=== PATIENT | female | born 1985 | race Hispanic/Latino ===

== ENCOUNTER 2018-03-16 14:25 | Emergency (ER) | payer MEDICAID, OTHER ==
[2018-03-16 15:26] LABS: APPEARANCE,URINE Clear (CLEAR); BILIRUBIN,URINE Negative (NEGATIVE); COLOR,URINE Yellow (YELLOW); GLUCOSE, URINE (UA) Negative (NEGATIVE); KETONES,URINE Negative (NEGATIVE); LEUKOCYTE ESTERASE ,URINE Negative (NEGATIVE); NITRATE,URINE Negative (NEGATIVE); OCCULT BLOOD,URINE Negative (NEGATIVE); PH,URINE 6.5 (5.0-8.0); PROTEIN,URINE Negative (NEGATIVE); UROBILINOGEN,URINE 0.2 mg/dL (0.2-1.0)
[2018-03-16 15:29] LABS: HCG,QUAL RESULT NEGATIVE (NEGATIVE)
[2018-03-16 15:30] LABS: BASOPHILS % (AUTO) 0.4 % (0.0-5.0); EOSINOPHILS % (AUTO) 0.7 % (0.0-8.0); HEMATOCRIT 38.7 % (36-48); LYMPHOCYTES % (AUTO) 9.2 % (21.0-51.0); MEAN CORPUSCULAR HEMOGLOBIN 24.9 pg (27.0-33.0); MEAN CORPUSCULAR HGB CONC 31.8 g/dL (32.0-36.0); MEAN CORPUSCULAR VOLUME 78.2 fL (79-99); MONOCYTES % (AUTO) 3.2 % (3.0-13.0); NEUTROPHILS % (AUTO) 86.5 % (40.0-77.0); PLATELET COUNT (AUTO) 222 K/uL (130-400); RED BLOOD CELL COUNT(AUTO) 4.94 MIL/uL (4.00-5.50); RED CELL DISTRIBUTION WIDTH 16.2 % (11.0-15.5); WHITE BLOOD COUNT (AUTO) 14.3 K/uL (4.8-10.8)
[2018-03-16 15:36] LABS: CREATININE 0.6 mg/dL (0.5-1.5); POTASSIUM 3.6 mmol/L (3.5-5.1)
[2018-03-16 15:41] LABS: ALBUMIN 3.6 g/dL (3.5-5.0); BILIRUBIN,DIRECT 0.1 mg/dL (0.0-0.3); BILIRUBIN,TOTAL 0.5 mg/dL (0.2-1.0); TOTAL PROTEIN, SERUM 7.5 g/dL (6.0-8.3)
[2018-03-16] MEDS ORDERED: HYOSCYAMINE SULFATE 0.125 MG TAB.SUBL SL ONE (15:41)
[2018-03-16] MEDS ORDERED: KETOROLAC TROMETHAMINE 30MG/ML ONE (16:01)
[2018-03-16] MEDS ORDERED: SODIUM CHLORIDE 0.9% 1000ML 1,000 ML IV ONE (16:01)
== END 2018-03-16 17:26 | disposition home or self-care (01) ==
LOC: EDH 14:25
DX: A09 Infectious gastroenteritis and colitis, unspecified (principal); K80.80 Other cholelithiasis without obstruction; Z98.890 Other specified postprocedural states; Z88.0 Allergy status to penicillin; Z72.0 Tobacco use
CPT/HCPCS: 36415; 74177; 80048; 80076; 81003; 81025; 85025; 96361; 96374; 99284; J1885; J7030

== ENCOUNTER 2024-10-13 01:51 | Observation (INO) | payer MEDICAID ==
[~2024-10-13] VITALS: Ht 165.1 cm; Wt 88.4 kg
[~2024-10-13 01:51] MED LIST: PANT40TA PO
--- NOTE | 2024-10-13 02:09 | ERN ---
General Chief Complaint: Abdominal Pain Stated Complaint: DIFFUSE ABD PAIN Time Seen by MD: 01:59 Source: patient History of Present Illness Initial Comments 39-year-old female status post exploratory laparotomy for perforated duodenal ulcer September 19. The operative report suggest she has had a gastric bypass surgery in the past. Patient comes in today with a excruciating abdominal pain that comes in waves about 3-4 minutes apart. They are associated with nausea and vomiting. No fevers no urinary tract symptoms. Allergies: Coded Allergies: Penicillins (Unverified Allergy, Severe, 08/12/24) No Known Drug Allergies (Verified Allergy, Unknown, 08/12/24) Home Meds Active Scripts Pantoprazole Sodium (Protonix) 40 Mg Tablet.dr, 1 TAB PO BID for 30 Days, #30 TAB 0 Refills Prov:LORI GALLAGHER APRN 08/23/24 Past Medical History Past Medical History: No Pertinent History Past Surgical History: Surgical History Other: GASTRIC BYPASS Perforated duodenal ulcer Constitutional: (-) chills, (-) diaphoresis, (-) fever, (-) malaise, (-) weakness, (-) other documentation EENTM: (-) eye pain, (-) blurred vision, (-) tearing, (-) double vision, (-) ear pain, (-) ear discharge, (-) nose pain, (-) nose congestion, (-) throat pain, (-) Throat swelling, (-) mouth pain, (-) tooth pain, (-) mouth swelling, (-) other documentation Respiratory: (-) cough, (-) orthopnea, (-) short of breath, (-) stridor, (-) wheezing, (-) other documentation Cardiovascular: (-) chest pain, (-) edema, (-) palpitations, (-) syncope, (-) dyspnea on exertion, (-) other documentation Gastrointestinal/Abdominal: (+) nausea, (+) vomiting Genitourinary: (-) vaginal discharge, (-) vaginal bleeding, (-) dysuria, (-) frequency, (-) hematuria, (-) pain, (-) other documentation Musculoskeletal: (+) back pain; (-) Neck pain, (-) Flank Pain, (-) joint pain, (-) joint swelling, (-) muscle pain, (-) muscle stiffness, (-) gout, (-) other documentation Skin: (-) laceration, (-) contusion, (-) abrasion, (-) abscess, (-) rash, (-) change in color, (-) change in hair, (-) change in nails, (-) diaphoresis, (-) dryness, (-) other documentation Physical Exam General Appearance: (+) severe distress Orientation: (+) alert, (+) oriented x 3 Head/Face Trauma: No Eye: bilateral eye normal inspection, bilateral eye PERRL, bilateral eye EOMI Ear, Nose, Throat: (+) hearing grossly normal, (+) normal ENT inspection, (+) moist mucous membraine Neck: (+) normal inspection, (+) supple, (+) full range of motion Respiratory: (+) chest non-tender, (+) lungs clear, (+) well ventilated Heart: (+) regular, (+) tachycardia Vascular: (+) no edema, (+) normal peripheral pulse Gastrointestinal: (+) soft, (+) bowel sound present, (+) tender Results Laboratory and Microbiology Lab and Micro Result Laboratory Tests Test 10/13/24 02:07 10/13/24 04:26 White Blood Count 7.6 K/uL (4.8-10.8) Red Blood Count 4.04 MIL/uL (4.00-5.50) Hemoglobin 11.8 g/dL (12.0-16.0) L Hematocrit 35.5 % (36-48) L Mean Corpuscular Volume 87.9 fL (79-99) Mean Corpuscular Hemoglobin 29.2 pg (27.0-33.0) Mean Corpuscular Hemoglobin Concent 33.2 g/dL (32.0-36.0) Red Cell Distribution Width 14.9 % (11.0-15.5) Platelet Count 213 K/uL (130-400) Mean Platelet Volume 11.3 fL (7.5-10.5) H Immature Granulocyte % (Auto) 0.3 % (0-1) Neutrophils (%) (Auto) 81.6 % (40.0-77.0) H Lymphocytes (%) (Auto) 11.2 % (21.0-51.0) L Monocytes (%) (Auto) 5.3 % (3.0-13.0) Eosinophils (%) (Auto) 1.2 % (0.0-8.0) Basophils (%) (Auto) 0.4 % (0.0-5.0) Neutrophils # (Auto) 6.2 K/uL (1.8-7.7) Lymphocytes # (Auto) 0.9 K/uL (1.0-4.8) L Monocytes # (Auto) 0.4 K/uL (0.1-1.0) Eosinophils # (Auto) 0.09 K/uL (0.00-0.70) Basophils # (Auto) 0.03 K/uL (0.00-0.20) Absolute Immature Granulocyte (auto 0.02 K/uL (0-1) Nucleated Red Blood Cells 0.0 % (0.0-0.19) Sodium Level 140 mmol/L (136-145) Potassium Level 4.0 mmol/L (3.5-5.1) Chloride Level 105 mmol/L (101-111) Carbon Dioxide Level 23 mmol/L (21-32) Blood Urea Nitrogen 15 mg/dL (7-18) Creatinine 0.5 mg/dL (0.5-1.0) Glomerular Filtration Rate Calc 124 mL/min (>90) Random Glucose 106 mg/dL (70-105) H Total Calcium 8.3 mg/dL (8.5-10.1) L Total Bilirubin 0.4 mg/dL (0.2-1.0) Aspartate Amino Transf (AST/SGOT) 20 U/L (10-37) Alanine Aminotransferase (ALT/SGPT) 20 U/L (12-78) Alkaline Phosphatase 91 U/L (50-136) Total Protein 6.9 g/dL (6.0-8.3) Albumin 3.4 g/dL (3.5-5.0) L Serum Test, Qualitative NEGATIVE (NEGATIVE) Urine Color YELLOW (YELLOW) Urine Appearance CLEAR (CLEAR) Urine pH 6.0 (5.0-8.0) Urine Specific Joseph 1.031 (1.001-1.031) Urine Protein 10 mg/dL (NEGATIVE) H Urine Glucose (UA) NEGATIVE mg/dL (NEGATIVE) Urine Ketones 100 mg/dL (NEGATIVE) H Urine Occult Blood NEGATIVE (NEGATIVE) Urine Nitrate NEGATIVE (NEGATIVE) Urine Bilirubin NEGATIVE mg/dL (NEGATIVE) Urine Urobilinogen 2.0 mg/dL (0.2-1.0) H Urine Leukocyte Esterase NEGATIVE Jose/uL Urine RBC 2-5 /HPF (0-1) H Urine WBC 2-5 /HPF (0-1) H Urine Squamous Epithelial Cells RARE /HPF (0-2) Urine Bacteria FEW /HPF (None Seen) MDM MDM: Differential diagnosis: Another perforation, small-bowel obstruction, renal calculi, pyelonephritis, Rationale: Tests considered and ordered secondary to shared decision making include: Previous outside records reviewed: Old ER visits. Risk of complication and/or morbidity or mortality of patient management: None Medications-Per medication reconciliation Need for hospitalization: Patient does meet criteria for hospitalization. Need for emergency major/minor surgery: No There are no social concerns with this patient. Prescription drug management Prescriptions will include symptomatic care Patient's prior external medical records from other ER visits were reviewed by me as indicated. Prior testing and results from previous visits were reviewed. Prior tests were taken into account with medical decision making and resource utilization, independent historian/historians were used to obtain complete medical history. I independently interpreted the test that were performed, results were reviewed by me and considered findings on radiology if ordered. CT scan shows an early small-bowel obstruction. I did try and control the patient's subxiphoid pain with a GI cocktail and it immediately created nausea and emesis. Patient's UA showed large number of ketones no signs of infection. I am calling the hospitalist service to admit patient with a small bowel obstruction. They have agreed to accept her ED Course Orders Procedure Category Date Status Time Comprehensive LAB 10/13/24 Complete Metabolic Panel 02:10 Cbc With Differential LAB 10/13/24 Complete 02:10 Urinalysis Profile LAB 10/13/24 Complete 02:10 Ct Abdomen/Pelvis CT 10/13/24 Resulted W/Wo Contras 02:10 Hydromorphone 1 Mg PHA 10/13/24 Complete Inj (Dilaudid 1mg Inj 02:30 Testing, LAB 10/13/24 Complete Serum Hcg 02:30 Iohexol (Omnipaque) PHA 10/13/24 Complete 02:44 Lactated Ringers PHA 10/13/24 Complete 1000ml (Lactated 02:50 Hydromorphone 1 Mg PHA 10/13/24 Complete Inj (Dilaudid 1mg Inj 03:00 Hydromorphone 2mg PHA 10/13/24 Complete Vial (Dilaudid 2mg Inj 03:00 Lidocaine Hcl 2% PHA 10/13/24 Complete Viscous (Lidocaine Hcl 04:30 Mag/Alum/Simeth 30ml PHA 10/13/24 Complete (Maalox Plus 30ml) 04:30 Dicyclomine Hcl PHA 10/13/24 Complete (Bentyl 10mg/5ml 04:30 Ondansetron 4mg Inj PHA 10/13/24 Complete (Zofran 4mg Inj) 05:30 Lactated Ringers PHA 10/13/24 Complete 1000ml (Lactated 05:29 Current Medications Medications (Trade) Dose Ordered Sig/Katharina Route PRN Reason Start Time Stop Time Status Last Admin Dose Admin Al Hydroxide/Mg Hydroxide (MAALox PLUS 30ML) 30 ml ONCE ONCE PO 10/13/24 04:30 10/13/24 04:31 DC 10/13/24 04:44 Dicyclomine HCl (Bentyl 10mg/5ml Syrup) 10 mg ONCE ONCE PO 10/13/24 04:30 10/13/24 04:31 DC 10/13/24 04:44 Hydromorphone HCl (DiLAUDid 1MG INJ) 1 mg ONCE ONCE IVP 10/13/24 02:30 10/13/24 02:31 DC 10/13/24 02:25 Hydromorphone HCl (DiLAUDid 1MG INJ) 1 mg ONCE ONCE IVP 10/13/24 03:00 10/13/24 02:58 DC Hydromorphone HCl (DiLAUDid 2MG INJ) 2 mg ONCE ONCE IVP 10/13/24 03:00 10/13/24 03:01 DC 10/13/24 03:02 Iohexol (Omnipaque) 75 ml STK-MED ONCE IV 10/13/24 02:44 10/13/24 02:45 DC Lactated Ringer's (Lactated Ringers 1000ml) 1,000 ml BOLUS STAT IV 10/13/24 02:50 10/13/24 02:54 DC 10/13/24 02:57 Lactated Ringer's (Lactated Ringers 1000ml) 1,000 ml BOLUS STAT IV 10/13/24 05:29 10/13/24 05:32 DC Lidocaine HCl (Lidocaine HCl 2% Viscous) 10 ml ONCE ONCE PO 10/13/24 04:30 10/13/24 04:31 DC 10/13/24 04:44 Ondansetron HCl (zoFRAN 4MG INJ) 4 mg ONCE ONCE IVP 10/13/24 05:30 10/13/24 05:31 DC 10/13/24 05:21 Vital Signs Date Time Temp Pulse Resp B/P (MAP) Pulse Ox O2 Delivery O2 Flow Rate FiO2 10/13/24 05:32 98.2 60 16 104/57 98 Room Air* 0 10/13/24 04:22 98.2 61 18 121/70 98 Room Air* 0 10/13/24 02:08 98.2 69 18 126/74 98 Room Air* 0 10/13/24 01:52 99.1 72 18 140/85 100 Room Air 0 DX & DISP Disposition: Inpatient Departure Impression: Primary Impression: Small bowel obstruction Additional Impression: Dehydration Condition: Stable Referrals: SELF,REFERRAL (PCP) TEODORO GARCIA MD Oct 13, 2024 02:09
[2024-10-13 02:22] LABS: IMMATURE GRANULOCYTE ABSOLUTE 0.02 K/uL (0-1); NUCLEATED RED BLOOD CELLS 0.0 % (0.0-0.19); PLATELET COUNT (AUTO) 213 K/uL (130-400); RED BLOOD CELL COUNT(AUTO) 4.04 MIL/uL (4.00-5.50); RED CELL DISTRIBUTION WIDTH 14.9 % (11.0-15.5); WHITE BLOOD COUNT (AUTO) 7.6 K/uL (4.8-10.8)
[2024-10-13 02:33] LABS: CREATININE 0.5 mg/dL (0.5-1.0); GLOMERULAR FILTR. RATE CALC 124.0 mL/min (>90); GLUCOSE,RANDOM 106.0 mg/dL (70-105); SODIUM SERUM 140.0 mmol/L (136-145); UREA NITROGEN, BLOOD 15.0 mg/dL (7-18)
[2024-10-13 02:38] LABS: ASPARTATE AMINOTRANSFERASE 20.0 U/L (10-37); TOTAL PROTEIN, SERUM 6.9 g/dL (6.0-8.3)
[2024-10-13] MEDS ORDERED: IOHEXOL-350 75 ML VIAL IV ONE (02:44)
[2024-10-13] MEDS: LACTATED RINGERS 1000ML IV STA ×2 (02:57→05:36)
[2024-10-13] MEDS: DICYCLOMINE HCL 10 MG/5 ML ML PO ONE (04:44)
[2024-10-13] MEDS: LIDOCAINE HCL 2% VISCOUS 15 ML UDCUP PO ONE (04:44)
[2024-10-13] MEDS: MAG/ALUM/SIMETH 30 ML UDCUP PO ONE (04:44)
[2024-10-13 04:48] LABS: APPEARANCE,URINE CLEAR (CLEAR); GLUCOSE, URINE (UA) NEGATIVE (NEGATIVE); LEUKOCYTE ESTERASE ,URINE NEGATIVE Leu/uL (NEGATIVE); NITRATE,URINE NEGATIVE (NEGATIVE); OCCULT BLOOD,URINE NEGATIVE (NEGATIVE)
[2024-10-13 04:53] LABS: ADD UA MICROSCOPIC YES
[2024-10-13 04:55] LABS: SQUAMOUS EPITHELIAL CELL,UR RARE /HPF (0-2)
--- NOTE | 2024-10-13 05:13 | HMCIMG ---
EXAM: CT Abdomen and Pelvis without V contrast CLINICAL HISTORY: Perforation, obstruction, or renal calculus. TECHNIQUE: Thin collimated axial CT images of the abdomen and pelvis were obtained, with sagittal and coronal reformatted images also submitted. A CT scan is done according to ALARA (As Low As Reasonably Achievable). CONTRAST: None COMPARISON: Prior CT urogram dated August 25 FINDINGS: Unremarkable visualized lung parenchyma. Post cholecystectomy status. Moderate splenomegaly. No discrete focal lesion. No focal abnormality within the liver, pancreas, adrenals, or kidneys. Mild fluid-filled dilated mid-ileal loops measuring up to 2.7 cm with an abrupt transition point in the right iliac fossa. Distal ileal loops are not dilated. Possibility of subacute small bowel obstruction around the junction of the mid and distal ileal loops, probably secondary to adhesions or bands. Post-gastric reduction surgery status with gastrojejunostomy. Surgical anastomosis in the distal jejunal loops. Distal jejunal loops or proximal loops are not dilated. Mild fat stranding in the omentum. Mild free fluid in the pelvis. Moderate amount of fecal residue in the cecum and ascending and transverse colon. The appendix is not discretely visualized. No features of acute appendicitis. There is no abnormality within the urinary bladder. Unremarkable reproductive organs. Abdominal and pelvic vessels are patent. No lymphadenopathy. There is no acute osseous abnormality. Degenerative changes in the sacroiliac, superolateral hip joint, and multilevel degenerative facet arthropathy. IMPRESSIONS: Subacute to small bowel obstruction. Recommend CT abdomen and pelvis with IV and oral contrast for further evaluation. Moderate splenomegaly. Small ascites. Post cholecystectomy status. Compared to the prior study, there is an interval resolution of the mild bilateral pleural effusion. A resolution of the postoperative intraperitoneal air. Previously identified changes of ileus have regressed; however, there is interval dilatation of the mid-ileal loops. /[place]
[2024-10-13] MEDS ORDERED: LACTULOSE 20 GM/30 ML UDCUP PO PRN (06:30)
[2024-10-13 06:45] VITALS: BP 129/93; PULSE 58; RESP 18; TEMP 97.5
[2024-10-13 08:00] VITALS: BP 123/71; PULSE 60; RESP 19; TEMP 97.4; O2SAT 97
--- NOTE | 2024-10-13 09:55 | HP ---
[facility] PHYS[facility] Date of Service: Oct 13, 2024 Time of Service: 09:39 HISTORY OF PRESENT ILLNESS: [ ] Admission date 10/13/2024 Chief complaint abdominal pain PCP DR Donn Scott This is a 39-year-old female presents in ED with abdominal pain. Onset three days reports it gradually became worsening with nauseated. Location diffuse, stated 10/10 on pain scale, pain does not radiate. Aggravating factors p.o. intake alleviating factors none associated symptoms nauseated. Patient rep orts last BM was last night but it was very small amount. She report no fluctuance but she belching Patient denies taking narcotics for pain. Patient has a significant medical history of perforated ulcer underwent ex lap August 12, 2024. Imaging was obtained Subacute to small bowel obstruction. Moderate splenomegaly. Small ascites. General surgeon was consulted we will wait for his recommendation she is currently NPO for now. Patient is seen in room 407 patient is fully awake alert oriented x3. pain is diffuse dull pain after she received pain medication in ED. she denied chest pain or shortness for breath REVIEW OF SYSTEMS 12 point ROS obtained all relevant positive documented otherwise ROS negative PAST MEDICAL HISTORY: [ ] History of perforated ulcer PAST SURGICAL HISTORY: [ ] Ex lap perforated ulcer PAST SOCIAL HISTORY: [ ] Denies smoking tobacco products and alcohol use lives with spouse FAMILY HISTORY: [ ] Noncontributory Coded Allergies: Penicillins (Unverified Allergy, Severe, 08/12/24) No Known Drug Allergies (Verified Allergy, Unknown, 08/12/24) PHYSICAL EXAM GENERAL APPEARANCE: The patient is awake, alert, and oriented, in no acute cardiopulmonary distress. NEUROLOGICAL: Cranial nerves II-XII grossly intact. Motor is 5/5 in bilateral upper and lower extremities proximal to distal. No sensory deficits. HEENT: Face is symmetric. Pupils are equal and reactive. Extraocular movements are intact. NECK: Supple. No JVD. No thyromegaly. No submental, submandibular, pre- /postauricular, occipital or supraclavicular lymphadenopathy. CHEST: Normal chest expansion. No Telemetry. LUNGS: Absence of any rales, rhonchi or any wheezing. CARDIOVASCULAR: Regular. S1 and S2 normal. No appreciable rubs, murmurs or gallops. ABDOMEN: Soft, nontender, ++distended. There is no rebound, voluntary guarding, or rigidity. : Deferred. No [place]. EXTREMITIES: Non-edematous and not cyanotic. No clubbing. Good capillary refill. SKIN: No skin breakdown. Vital Sign (Last 24 Hours) 10/13/24 10/13/24 06:28 08:00 Temp 97.3 Pulse 60 Resp 19 B/P (MAP) 123/71 Pulse Ox 98 O2 Delivery Room Air O2 Flow Rate 0 FiO2 21 LABS: Laboratory: Test 10/13/24 04:26 10/13/24 02:07 Range/Units Urine Color YELLOW YELLOW Urine Appearance CLEAR CLEAR Urine pH 6.0 5.0-8.0 Urine Specific [place] 1.031 1.001-1.031 Urine Protein 10 H NEGATIVE mg/dL Urine Glucose (UA) NEGATIVE NEGATIVE mg/dL Urine Ketones 100 H NEGATIVE mg/dL Urine Occult Blood NEGATIVE NEGATIVE Urine Nitrate NEGATIVE NEGATIVE Urine Bilirubin NEGATIVE NEGATIVE mg/dL Urine Urobilinogen 2.0 H 0.2-1.0 mg/dL Urine Leukocyte Esterase NEGATIVE NEGATIVE Jose/uL Urine RBC 2-5 H 0-1 /HPF Urine WBC 2-5 H 0-1 /HPF Urine Squamous Epithelial Cells RARE 0-2 /HPF Urine Bacteria FEW None Seen /HPF White Blood Count 7.6 4.8-10.8 K/uL Red Blood Count 4.04 4.00-5.50 MIL/uL Hemoglobin 11.8 L 12.0-16.0 g/dL Hematocrit 35.5 L 36-48 % Mean Corpuscular Volume 87.9 79-99 fL Mean Corpuscular Hemoglobin 29.2 27.0-33.0 pg Mean Corpuscular Hemoglobin Concent 33.2 32.0-36.0 g/dL Red Cell Distribution Width 14.9 11.0-15.5 % Platelet Count 213 130-400 K/uL Mean Platelet Volume 11.3 H 7.5-10.5 fL Immature Granulocyte % (Auto) 0.3 0-1 % Neutrophils (%) (Auto) 81.6 H 40.0-77.0 % Lymphocytes (%) (Auto) 11.2 L 21.0-51.0 % Monocytes (%) (Auto) 5.3 3.0-13.0 % Eosinophils (%) (Auto) 1.2 0.0-8.0 % Basophils (%) (Auto) 0.4 0.0-5.0 % Neutrophils # (Auto) 6.2 1.8-7.7 K/uL Lymphocytes # (Auto) 0.9 L 1.0-4.8 K/uL Monocytes # (Auto) 0.4 0.1-1.0 K/uL Eosinophils # (Auto) 0.09 0.00-0.70 K/uL Basophils # (Auto) 0.03 0.00-0.20 K/uL Absolute Immature Granulocyte (auto 0.02 0-1 K/uL Nucleated Red Blood Cells 0.0 0.0-0.19 % Sodium Level 140 136-145 mmol/L Potassium Level 4.0 3.5-5.1 mmol/L Chloride Level 105 101-111 mmol/L Carbon Dioxide Level 23 21-32 mmol/L Blood Urea Nitrogen 15 7-18 mg/dL Creatinine 0.5 0.5-1.0 mg/dL Glomerular Filtration Rate Calc 124 >90 mL/min Random Glucose 106 H 70-105 mg/dL Total Calcium 8.3 L 8.5-10.1 mg/dL Total Bilirubin 0.4 0.2-1.0 mg/dL Aspartate Amino Transf (AST/SGOT) 20 10-37 U/L Alanine Aminotransferase (ALT/SGPT) 20 12-78 U/L Alkaline Phosphatase 91 50-136 U/L Total Protein 6.9 6.0-8.3 g/dL Albumin 3.4 L 3.5-5.0 g/dL Serum Test, Qualitative NEGATIVE NEGATIVE Current Medications Medications (Trade) Dose Ordered Sig/Katharina Route PRN Reason Start Time Stop Time Status Last Admin Dose Admin Acetaminophen (TYLenol 325MG TAB) 650 mg Q6H PRN PO FEVER/MILD PAIN LEVEL 1-3 10/13/24 06:30 11/12/24 06:29 Acetaminophen (TYLenol 650MG SUPPOSITORY) 650 mg Q6H PRN RC FEVER / MILD PAIN 1-3 IF NPO 10/13/24 06:30 11/12/24 06:29 Docusate Sodium (COLace 100MG CAP) 100 mg BID PRN PO CONSTIPATION 10/13/24 06:30 11/12/24 06:29 Famotidine (Pepcid 20mg Vial) 20 mg BID IV 10/13/24 09:00 11/12/24 08:59 Insulin Human Regular (humuLIN R 100 UNIT/ML 3ML) INSULIN SLIDING SCAL... ACHS SQ 10/13/24 07:30 11/12/24 07:29 Labetalol HCl (TRANdate 20MG SYG) 10 mg Q2H PRN IV SBP GREATER THAN 160 10/13/24 06:30 11/12/24 06:29 Lactated Ringer's 1,000 ml @ 75 mls/hr [id number] IV 10/13/24 06:30 11/12/24 06:29 Lactated Ringer's (Lactated Ringers 1000ml) 1,000 ml BOLUS STAT IV 10/13/24 02:50 10/13/24 02:54 DC 10/13/24 02:57 1,000 ML Lactated Ringer's (Lactated Ringers 1000ml) 1,000 ml BOLUS STAT IV 10/13/24 05:29 10/13/24 05:32 DC 10/13/24 05:36 1,000 ML Lactulose (Constulose 20gm/ 30ml Udcup) 20 gm Q6H PRN PO CONSTIPATION 10/13/24 06:30 11/12/24 06:29 Morphine Sulfate (morPHINE 2MG SYG) 2 mg Q4H PRN IVP SEVERE PAIN (7-10) 10/13/24 06:30 10/20/24 06:29 Ondansetron HCl (zoFRAN 4MG INJ) 4 mg Q6H PRN IVP NAUSEA/VOMITING 10/13/24 06:30 11/12/24 06:29 Temazepam (restORIL 15 MG CAP) 15 mg HS PRN PO INSOMNIA/SLEEP 10/13/24 06:30 11/12/24 06:29 DIAGNOSTICS / RADIOLOGY: [ ] ASSESSMENT: SBO POA Intractable abdominal pain POA History of ex lap perforation ulcer POA Allergies PCN PLAN: Admit: Medical floor condition: Guarded Status: Full code Diet: NPO Bowel Rest IVF: LRat 75 mL/hour Consultants general surgeon Antibiotics: Imaging. We will wait for surgeon if he needs further evaluation Labs cbc, cmp, mag+ Replace electrolytes as needed as per protocol to keep potassium above 4.0 magnesium 2.0. Home medications pending to be reviewed by RN nurse. PRN: MEDICATIONS morphine2 mg p.o. daily Tylenol 650 mg po every 4 hrs for fever zofran 4 mg IV every 6 hrs for n/v Labetalol 10 mg IV every 4 hrs systolic pressure > 160 bowel regiment: lactulose 20 gm PO BID and colace PRN constipation Pain management: Supportive measures: DVT ppx, GI ppx all questions answered time spent: > 35 min Supervising MD: Dr. Rose c/d This document was generated in part using voice recognition software, occasional wrong word or sound alike substitutions may have occurred due to the inherent limitations of voice recognition software. Read the chart carefully and recognize using context, where the substitutions have occurred. Although every effort was made to edit the content, warehouse helper and typing errors may occur ADVANCED CARE PLANNING 1. Which of the following were discussed? Hospice Care - Yes / No Therapeutic options - Yes / No Advance Directives - Yes / No Other discussions - 2. Discussed with who? 3. Voluntary nature of this service was explained to the patient? Yes / No 4. Amount of time spent - 5. Reviewed by Physician? (if this service was performed by NPP) Yes / No ATTESTATION BY PHYSICIAN I have seen and examined the patient. I reviewed the documentation, medical decision making, and treatment plan as noted by the mid-level provider above. I agree with the findings and plan of care. BRENNAN ROSE MD, ELIZABETH NP Oct 13, 2024 09:55
[2024-10-13] MEDS ORDERED: PoTASSium chloRIDE 20MEQ ER 20 MEQ ERTAB PO PRN (10:00)
[2024-10-13] MEDS ORDERED: MAGNESIUM 2GM PREMIX 50ML 50 ML IV PRN (10:00)
[2024-10-13] MEDS ORDERED: PoTASSium chl 10% ELIXIR 20MEQ 20 MEQ/15 ML UDCUP PO PRN (10:00)
[2024-10-13] MEDS: LACTATED RINGERS 1000ML 1,000 ML IV SCH (10:24)
[2024-10-13] MEDS: FAMOTIDINE 20MG VIAL IV SCH (10:24)
[2024-10-13 12:15] VITALS: BP 125/77; PULSE 62; RESP 19; TEMP 97.9
[2024-10-13] MEDS: MAGNESIUM CITRATE 296 ML SOLUTION PO ONE (13:28)
--- NOTE | 2024-10-13 13:46 | CONS ---
GENERAL SURGERY CONSULTATION NOTE DATE OF CONSULTATION: Oct 13, 2024 TIME OF CONSULTATION: 13:43 CONSULTING SERVICE: Jeremi Burns MD REQUESTING PHYSICAIN: [ ] REASON FOR CONSULTATION: [ ] Abdominal pain SBO HISTORY OF PRESENT ILLNESS: [ ] 39-year-old lady who presented with abdominal pain She said pain had been going on for about a week now he had gotten worse yesterday No nausea or vomiting No diarrhea or constipation PAST MEDICAL HISTORY: [ ] Perforated duodenal ulcer PAST SURGICAL HISTORY: [ ] Exploratory laparotomy FAMILY HISTORY: [ ] No family history of hypertension or diabetes SOCIAL HISTORY: [ ] No smoking No alcohol Current Medications Medications (Trade) Dose Ordered Sig/Katharina Route Start Time Stop Time Status Last Admin Dose Admin Famotidine (Pepcid 20mg Vial) 20 mg BID IV 10/13/24 09:00 11/12/24 08:59 10/13/24 10:24 20 MG Insulin Human Regular (humuLIN R 100 UNIT/ML 3ML) INSULIN SLIDING SCAL... ACHS SQ 10/13/24 07:30 11/12/24 07:29 Lactated Ringer's 1,000 ml @ 75 mls/hr [id number] IV 10/13/24 06:30 11/12/24 06:29 10/13/24 10:24 75 MLS/HR Lactated Ringer's (Lactated Ringers 1000ml) 1,000 ml BOLUS STAT IV 10/13/24 02:50 10/13/24 02:54 DC 10/13/24 02:57 1,000 ML Lactated Ringer's (Lactated Ringers 1000ml) 1,000 ml BOLUS STAT IV 10/13/24 05:29 10/13/24 05:32 DC 10/13/24 05:36 1,000 ML Levofloxacin/ Dextrose 100 ml @ 100 mls/hr Q24H IV 10/13/24 10:00 10/23/24 09:59 10/13/24 10:24 100 MLS/HR Allergies: Coded Allergies: Penicillins (Unverified Allergy, Severe, 08/12/24) No Known Drug Allergies (Verified Allergy, Unknown, 08/12/24) REVIEW OF SYSTEMS: DIRECTOR OF CLINICAL TRIALS: [Denies headaches or blurring of vision.] RESP: [No cough, chest pain or SOB.] CVS: [No palpitaions.] GI: [abdominal pain no nausea and vomiting, no diarrhea or constipation.] LYDIA: [No dysuria or hematuria.] Musculoskeletal: [No swelling or joint pain.] BACK: [No pain or swelling.] All other systems are reviewed and essentially negative pertinent positives in HPI. PHYSICAL EXAMINATION: GENERAL: [Patient is lying comfortably in bed, not in any obvious distress.] HEAD: [Normal with no signs of head trauma.] EYES: [Not pale not jaundiced afebrile to touch.] ENT: [ Normal.] NECK: [Supple,no tenderness,no lymphadenopathy,no masses,no thyromegaly ,no bruits, no JVD.] LUNGS: [Clear breath sounds bilaterally. No wheezes, rales, or rhonchi.] HEART: [Regular rate and rhythm. Normal S1 and S2, without murmurs, rub or gallop.] VASC: [No edema. Peripheral pulses normal and equal in all extremities.] ABD: [Bowel sounds present,soft, nontender, no masses, no organomegaly.] : [Normal, no suprapubic tenderness.] LYMPH: [No lymphadenopathy noted.] EXT: [ Warm soft, non tender.] SKIN: [ No rashes or lesions.] NEURO: [ Awake Alert and oriented x3.] Vital Signs (last 8hr) Date Time Temp Pulse Resp B/P (MAP) Pulse Ox O2 Delivery O2 Flow Rate FiO2 10/13/24 12:15 97.9 62 19 125/77 96 Room Air 10/13/24 08:00 97.3 60 19 123/71 98 Room Air 10/13/24 08:00 97 Room Air* 0 21 10/13/24 06:45 97.5 58 18 129/93 98 Room Air 10/13/24 06:28 98.4 66 18 125/68 98 Room Air* 0 21 LABORATORY: [ ] Hematology Labs: Test 10/13/24 02:07 Range/Units White Blood Count 7.6 4.8-10.8 K/uL Red Blood Count 4.04 4.00-5.50 MIL/uL Hemoglobin 11.8 L 12.0-16.0 g/dL Hematocrit 35.5 L 36-48 % Mean Corpuscular Volume 87.9 79-99 fL Mean Corpuscular Hemoglobin 29.2 27.0-33.0 pg Mean Corpuscular Hemoglobin Concent 33.2 32.0-36.0 g/dL Red Cell Distribution Width 14.9 11.0-15.5 % Platelet Count 213 130-400 K/uL Mean Platelet Volume 11.3 H 7.5-10.5 fL Immature Granulocyte % (Auto) 0.3 0-1 % Neutrophils (%) (Auto) 81.6 H 40.0-77.0 % Lymphocytes (%) (Auto) 11.2 L 21.0-51.0 % Monocytes (%) (Auto) 5.3 3.0-13.0 % Eosinophils (%) (Auto) 1.2 0.0-8.0 % Basophils (%) (Auto) 0.4 0.0-5.0 % Neutrophils # (Auto) 6.2 1.8-7.7 K/uL Lymphocytes # (Auto) 0.9 L 1.0-4.8 K/uL Monocytes # (Auto) 0.4 0.1-1.0 K/uL Eosinophils # (Auto) 0.09 0.00-0.70 K/uL Basophils # (Auto) 0.03 0.00-0.20 K/uL Absolute Immature Granulocyte (auto 0.02 0-1 K/uL Nucleated Red Blood Cells 0.0 0.0-0.19 % Chemistry Labs: Test 10/13/24 10:40 10/13/24 02:07 Range/Units Whole Blood Glucose 104 70-110 MG/DL Sodium Level 140 136-145 mmol/L Potassium Level 4.0 3.5-5.1 mmol/L Chloride Level 105 101-111 mmol/L Carbon Dioxide Level 23 21-32 mmol/L Blood Urea Nitrogen 15 7-18 mg/dL Creatinine 0.5 0.5-1.0 mg/dL Glomerular Filtration Rate Calc 124 >90 mL/min Random Glucose 106 H 70-105 mg/dL Total Calcium 8.3 L 8.5-10.1 mg/dL Total Bilirubin 0.4 0.2-1.0 mg/dL Aspartate Amino Transf (AST/SGOT) 20 10-37 U/L Alanine Aminotransferase (ALT/SGPT) 20 12-78 U/L Alkaline Phosphatase 91 50-136 U/L Total Protein 6.9 6.0-8.3 g/dL Albumin 3.4 L 3.5-5.0 g/dL Serum Test, Qualitative NEGATIVE NEGATIVE DIAGNOSTICS / RADIOLOGY: [Copy/Paste Echos/Imaging Report here] ASSESSMENT: [] Abdominal pain Partial SBO Constipation PLAN: [] Rehydrate IVF/IV ANTIOBIOTICS Mag citrate Clears in a.m. if she has BMs JEREMI BURNS MD Oct 13, 2024 13:45
[2024-10-13 16:07] VITALS: BP 115/70; PULSE 58; RESP 19; TEMP 98.7
[2024-10-13] MEDS ORDERED: MAGNESIUM CITRATE 296 ML SOLUTION PO ONE (16:30)
[2024-10-13] MEDS: MAGNESIUM CITRATE 296 ML SOLUTION PO SCH (18:18)
[2024-10-13 20:00] VITALS: BP 134/78; PULSE 62; RESP 18; TEMP 98.6
[2024-10-13 23:00] VITALS: O2SAT 98
[2024-10-14] VITALS: BP 117/71; PULSE 69; RESP 18; TEMP 97.5
[2024-10-14 04:00] VITALS: BP 107/53; PULSE 59; RESP 18; TEMP 98.5
[2024-10-14 04:27] LABS: NUCLEATED RED BLOOD CELLS 0.0 % (0.0-0.19); PLATELET COUNT (AUTO) 212.0 K/uL (130-400); RED BLOOD CELL COUNT(AUTO) 3.86 MIL/uL (4.00-5.50); RED CELL DISTRIBUTION WIDTH 14.6 % (11.0-15.5); WHITE BLOOD COUNT (AUTO) 6.4 K/uL (4.8-10.8)
[2024-10-14 04:39] LABS: CREATININE 0.5 mg/dL (0.5-1.0); GLOMERULAR FILTR. RATE CALC 124.0 mL/min (>90); GLUCOSE,RANDOM 75.0 mg/dL (70-105); PHOSPHORUS 3.1 mg/dL (2.5-4.9); SODIUM SERUM 141.0 mmol/L (136-145); UREA NITROGEN, BLOOD 6.0 mg/dL (7-18)
[2024-10-14 08:00] VITALS: O2SAT 93
[2024-10-14 08:18] VITALS: BP 111/56; PULSE 61; RESP 19; TEMP 97.9
[2024-10-14 11:56] VITALS: BP 149/73; PULSE 77; RESP 19; TEMP 97.7
[2024-10-14 12:00] VITALS: BP 111/65; PULSE 76; RESP 19; TEMP 97.7
--- NOTE | 2024-10-14 12:22 | DS ---
Discharge Summary Hospital Course Summary: Admission date 10/13/2024 Chief complaint abdominal pain PCP DR Donn Scott This is a 39-year-old female presents in ED with abdominal pain. Onset three days reports it gradually became worsening with nauseated. Location diffuse, stated 10/10 on pain scale, pain does not radiate. Aggravating factors p.o. intake alleviating factors none associated symptoms nauseated. Patient reports last BM was last night but it was very small amount. She report no fluctuance but she belching Patient denies taking narcotics for pain. Patient has a significant medical history of perforated ulcer underwent ex lap August 12, 2024. Imaging was obtained Subacute to small bowel obstruction. Moderate splenomegaly. Small ascites. General surgeon was consulted we will wait for his recommendation she is currently NPO for now. 10/14/24 patient is clinically doing better today patient was given magnesium citrate patient is has been having bowel movements she reports no abdominal pain she is tolerating diet no nausea no vomiting. ++ flatus Surgeon cleared her for discharge she is hemodynamically stable for discharge she denied chest pain or shortness for breath. Advised patient high-fiber diet and to drink plenty of fluids throughout the day. She verbalized understanding Procedure(s): REASON: perforation, obstru, nephro ORDERING PHYSICIAN: VENKATA GARCIA MD PROCEDURE: ABD PELWWO - CT ABDOMEN/PELVIS W/WO CONTRAS ADDENDUM REPORT ADDENDUM: Results were shared by telephone at 6:19 am on 10-13-24 and acknowledged by Venkata Teran. /[place] EXAM: CT Abdomen and Pelvis without V contrast CLINICAL HISTORY: Perforation, obstruction, or renal calculus. TECHNIQUE: Thin collimated axial CT images of the abdomen and pelvis were obtained, with sagittal and coronal reformatted images also submitted. A CT scan is done according to ALARA (As Low As Reasonably Achievable). CONTRAST: None COMPARISON: Prior CT urogram dated August 25 FINDINGS: Unremarkable visualized lung parenchyma. Post cholecystectomy status. Moderate splenomegaly. No discrete focal lesion. No focal abnormality within the liver, pancreas, adrenals, or kidneys. Mild fluid-filled dilated mid-ileal loops measuring up to 2.7 cm with an abrupt transition point in the right iliac fossa. Distal ileal loops are not dilated. Possibility of subacute small bowel obstruction around the junction of the mid and distal ileal loops, probably secondary to adhesions or bands. Post-gastric reduction surgery status with gastrojejunostomy. Surgical anastomosis in the distal jejunal loops. Distal jejunal loops or proximal loops are not dilated. Mild fat stranding in the omentum. Mild free fluid in the pelvis. Moderate amount of fecal residue in the cecum and ascending and transverse colon. The appendix is not discretely visualized. No features of acute appendicitis. There is no abnormality within the urinary bladder. Unremarkable reproductive organs. Abdominal and pelvic vessels are patent. No lymphadenopathy. There is no acute osseous abnormality. Degenerative changes in the sacroiliac, superolateral hip joint, and multilevel degenerative facet arthropathy. IMPRESSIONS: Subacute to small bowel obstruction. Recommend CT abdomen and pelvis with IV and oral contrast for further evaluation. Moderate splenomegaly. Small ascites. Post cholecystectomy status. Compared to the prior study, there is an interval resolution of the mild bilateral pleural effusion. A resolution of the postoperative intraperitoneal air. Previously identified changes of ileus have regressed; however, there is interval dilatation of the mid-ileal loops. /[place] DICTATED BY: ROLAND TRACY Jr., MD DATE: 10/13/24621 ELECTRONICALLY SIGNED BY: DATE: EXAM: CT Abdomen and Pelvis without V contrast CLINICAL HISTORY: Perforation, obstruction, or renal calculus. TECHNIQUE: Thin collimated axial CT images of the abdomen and pelvis were obtained, with sagittal and coronal reformatted images also submitted. A CT scan is done according to ALARA (As Low As Reasonably Achievable). CONTRAST: None COMPARISON: Prior CT urogram dated August 25 FINDINGS: Unremarkable visualized lung parenchyma. Post cholecystectomy status. Moderate splenomegaly. No discrete focal lesion. No focal abnormality within the liver, pancreas, adrenals, or kidneys. Mild fluid-filled dilated mid-ileal loops measuring up to 2.7 cm with an abrupt transition point in the right iliac fossa. Distal ileal loops are not dilated. Possibility of subacute small bowel obstruction around the junction of the mid and distal ileal loops, probably secondary to adhesions or bands. Post-gastric reduction surgery status with gastrojejunostomy. Surgical anastomosis in the distal jejunal loops. Distal jejunal loops or proximal loops are not dilated. Mild fat stranding in the omentum. Mild free fluid in the pelvis. Moderate amount of fecal residue in the cecum and ascending and transverse colon. The appendix is not discretely visualized. No features of acute appendicitis. There is no abnormality within the urinary bladder. Unremarkable reproductive organs. Abdominal and pelvic vessels are patent. No lymphadenopathy. There is no acute osseous abnormality. Degenerative changes in the sacroiliac, superolateral hip joint, and multilevel degenerative facet arthropathy. IMPRESSIONS: Subacute to small bowel obstruction. Recommend CT abdomen and pelvis with IV and oral contrast for further evaluation. Moderate splenomegaly. Small ascites. Post cholecystectomy status. Compared to the prior study, there is an interval resolution of the mild bilateral pleural effusion. A resolution of the postoperative intraperitoneal air. Previously identified changes of ileus have regressed; however, there is interval dilatation of the mid-ileal loops. /[place] DICTATED BY: ROLAND TRACY Jr., MD DATE: 10/13/24610 ELECTRONICALLY SIGNED BY: ROLAND TRACY Jr., MD DATE: 10/13/24610 Assessment/Plan: discharged dx's; SBO POA resolved Intractable abdominal pain POA resolved History of ex lap perforation ulcer POA Allergies PCN PLAN: ADMISSION DATE: 10/14/2024 DISCHARGE DATE: 10/13/2024 DISPOSITION: home CONDITION: stable [employer] INSTRUCTOR(S): general surgeon FOLLOW UP APPOINTMENT(S): PCP: PROCEDURES: IMAGING (S) report attached to summary : MICROBIOLOGY: report attached to summary; ACTIVITY: HOME MEDICATIONS CHANGES ON HOME MEDICATIONS NEW MEDICATIONS TEACHING: Emergency instructions: The patient was instructed to present to the nearest Emergency Department or call 911 should their symptoms return or worsen. Home Medications: Active Scripts Pantoprazole Sodium (Protonix) 40 Mg Tablet., 1 TAB PO BID for 30 Days, #30 TAB 0 Refills Prov:LORI GALLAGHER APRN 08/23/24 Continued Medications: Pantoprazole Sodium (Protonix) 40 Mg Tablet. 1 TAB PO BID for 30 Days, #30 TAB 0 Refills Time spent arranging discharge: 31-60 minutes ATTESTATION BY PHYSICIAN I have seen and examined the patient. I reviewed the documentation, medical decision making, and treatment plan as noted by the mid-level provider above. I agree with the findings and plan of care. BRENNAN ROSE MD, ELIZABETH NP Oct 14, 2024 12:22
--- NOTE | 2024-10-14 13:51 | PN ---
GENERAL SURGERY PROGRESS NOTE DATE OF SERVICE: Oct 14, 2024 TIME OF SERVICE: 13:50 Doing well No abdominal pain multiple bms PROBLEM LISTS: [ ] Abdominal pain constipation INTERVAL HISTORY: [ ] Improved PHYSICAL EXAMINATION: GENERAL: [Patient is lying comfortably in bed, not in any obvious distress.] HEAD: [Normal with no signs of head trauma.] EYES: [Not pale not jaundiced afebrile to touch.] ENT: [ Normal.] NECK: [Supple,no tenderness,no lymphadenopathy,no masses,no thyromegaly ,no bruits, no JVD.] LUNGS: [Clear breath sounds bilaterally. No wheezes, rales, or rhonchi.] HEART: [Regular rate and rhythm. Normal S1 and S2, without murmurs, rub or gallop.] VASC: [No edema. Peripheral pulses normal and equal in all extremities.] ABD: [Benign : [Normal, no suprapubic tenderness.] LYMPH: [No lymphadenopathy noted.] EXT: [ Warm soft, non tender.] SKIN: [ No rashes or lesions.] NEURO: [ Awake Alert and oriented x3.] LABORATORY: [ ] Hematology Labs: Test 10/14/24 03:48 10/13/24 02:07 Range/Units White Blood Count 6.4 4.8-10.8 K/uL Red Blood Count 3.86 L 4.00-5.50 MIL/uL Hemoglobin 11.3 L 12.0-16.0 g/dL Hematocrit 34.2 L 36-48 % Mean Corpuscular Volume 88.6 79-99 fL Mean Corpuscular Hemoglobin 29.3 27.0-33.0 pg Mean Corpuscular Hemoglobin Concent 33.0 32.0-36.0 g/dL Red Cell Distribution Width 14.6 11.0-15.5 % Platelet Count 212 130-400 K/uL Mean Platelet Volume 11.1 H 7.5-10.5 fL Nucleated Red Blood Cells 0.0 0.0-0.19 % Immature Granulocyte % (Auto) 0.3 0-1 % Neutrophils (%) (Auto) 81.6 H 40.0-77.0 % Lymphocytes (%) (Auto) 11.2 L 21.0-51.0 % Monocytes (%) (Auto) 5.3 3.0-13.0 % Eosinophils (%) (Auto) 1.2 0.0-8.0 % Basophils (%) (Auto) 0.4 0.0-5.0 % Neutrophils # (Auto) 6.2 1.8-7.7 K/uL Lymphocytes # (Auto) 0.9 L 1.0-4.8 K/uL Monocytes # (Auto) 0.4 0.1-1.0 K/uL Eosinophils # (Auto) 0.09 0.00-0.70 K/uL Basophils # (Auto) 0.03 0.00-0.20 K/uL Absolute Immature Granulocyte (auto 0.02 0-1 K/uL Chemistry Labs: Test 10/14/24 11:26 10/14/24 03:48 10/13/24 02:07 Range/Units Whole Blood Glucose 117 H 70-110 MG/DL Sodium Level 141 136-145 mmol/L Potassium Level 3.3 L 3.5-5.1 mmol/L Chloride Level 107 101-111 mmol/L Carbon Dioxide Level 27 21-32 mmol/L Blood Urea Nitrogen 6 L 7-18 mg/dL Creatinine 0.5 0.5-1.0 mg/dL Glomerular Filtration Rate Calc 124 >90 mL/min Random Glucose 75 70-105 mg/dL Total Calcium 8.3 L 8.5-10.1 mg/dL Phosphorus Level 3.1 2.5-4.9 mg/dL Magnesium Level 2.30 1.80-2.40 mg/dL Total Bilirubin 0.4 0.2-1.0 mg/dL Aspartate Amino Transf (AST/SGOT) 20 10-37 U/L Alanine Aminotransferase (ALT/SGPT) 20 12-78 U/L Alkaline Phosphatase 91 50-136 U/L Total Protein 6.9 6.0-8.3 g/dL Albumin 3.4 L 3.5-5.0 g/dL Serum Test, Qualitative NEGATIVE NEGATIVE DIAGNOSTICS / RADIOLOGY: [Copy/Paste Echos/Imaging Report here] ASSESSMENT: [] Abdominal pain Partial SBO Constipation resolved PLAN: [place] to [facility] home Follow-up with PCP JEREMI SALDANA MD Oct 14, 2024 13:50
--- NOTE | 2024-10-14 14:23 | NUR ---
LOOSE STOOLS Patient does not meet criteria for C-diff testing. Had recent dose of Magnesium citrate x 2 doses yesterday 10/13/2024 Addendum: 10/14/24 at 1453 by MELINA CANCHOLA RN RN Amended: Links added.
--- NOTE | 2024-10-14 18:30 | NUR ---
BOWEL REGIMEN Patient administered lactulose for promotion of bowel motility. Last bowel movement: 10/11/2024.
--- NOTE | 2024-10-14 18:35 | NUR ---
FULL WEIGHT BEARING Patient sleeping, drousy when physical therapist arrived for eval and treatment. Patient did not sleep much night before last. Then had family with her all day prior to surgery. When she returned from surgery, family was at bedside, very loud and talkative and remained until late in the evening. Patient likely had not rested well. At this time, patient is very awake and alert. Skilled nurse assisted patient to stand with use of walker. Son at bedside. Patient stood at bedside for approximately one minute, and then was assisted to sit at side of bed. Patient tolerated procedure.
== END 2024-10-14 17:30 | disposition home or self-care (01) ==
LOC: EDH 01:51 → INTOOBSV 01:52 → EDHIP 01:52 → UNDOADMOB 01:52 → EDHIP 05:36 → 4BH 06:45 → EDHIP 06:45
PROVIDERS: ADMIT Hospitalist; ATTEND Hospitalist
DX: K56.600 Partial intestinal obstruction, unspecified as to cause (principal); M54.9 Dorsalgia, unspecified; R11.2 Nausea with vomiting, unspecified; E86.0 Dehydration; Z88.0 Allergy status to penicillin; Z98.84 Bariatric surgery status; Z98.891 History of uterine scar from previous surgery; Z79.899 Other long term (current) drug therapy; Z98.890 Other specified postprocedural states
CPT/HCPCS: 96376 ×2; 96361 ×2; 96365; 96375; 99285; 80053; 84703; 85025; 82948 ×5; 81001; 36415 ×2; 74178; 96366; 83735; 84100; 80048; 85027; J3490 ×3; J1171 ×2; J1956 ×2; J2270; J2405 ×2; Q9967; G0378 ×5; 96374

== ENCOUNTER → 2024-11-21 | Outpatient (CLI) | payer MEDICAID ==
[~2024-11-21] MED LIST changes: +IOHEXOL-350 75 ML VIAL IV ONE
--- NOTE | 2024-11-22 08:05 | HMCIMG ---
EXAM: CT Abdomen and Pelvis with IV contrast CLINICAL HISTORY: Abnormal findings on diagnostic imaging of other parts of digestive tract TECHNIQUE: Axial computed tomography images of the abdomen and pelvis with intravenous contrast. CONTRAST: with intravenous contrast. COMPARISON: Studydated 10/13. FINDINGS: LUNG BASES: The lung bases appear clear. No pleural effusions are seen. LIVER: Unremarkable. GALLBLADDER AND BILE DUCTS: Post cholecystectomy status. No biliary ductal dilatation is evident. PANCREAS: Unremarkable. SPLEEN: Unremarkable. ADRENAL GLANDS: Unremarkable. KIDNEYS, URETERS, AND BLADDER: The kidneys appear within normal limits. There is no hydronephrosis or hydroureter. No urinary calculi are seen. STOMACH AND BOWEL: Post-gastric reduction surgery status with gastrojejunostomy. Surgical anastomosis in the distal jejunal loops. Distal jejunal loops or proximal loops are not dilated. No evidence of bowel obstruction. No evidence suggesting enteritis or colitis. APPENDIX: The appendix is not discretely visualized. No features of acute appendicitis. PERITONEUM: Mild free fluid in the pelvis. Mild fat stranding in the omentum. No free air. Diffuse subcutaneous abdominal fat stranding. LYMPH NODES: No lymphadenopathy is evident. REPRODUCTIVE: Unremarkable as visualized. VASCULATURE: No evidence of abdominal aortic aneurysm. BONES: Degenerative changes in the sacroiliac, superolateral hip joint, and multilevel degenerative facet arthropathy. No aggressive appearing osseous lesion. No acute osseous pathology evident. IMPRESSION: 1. Mild free fluid in the pelvis and mild omental fat stranding. 2. No evidence of bowel obstruction or acute intraabdominal pathology. /[place]
== END | disposition home or self-care (01) ==
LOC: RAH 07:50
PROVIDERS: ATTEND Internal Medicine Gastroenterology
DX: M46.1 Sacroiliitis, not elsewhere classified (principal); M16.9 Osteoarthritis of hip, unspecified; K91.1 Postgastric surgery syndromes; R18.8 Other ascites; R93.3 Abnormal findings on diagnostic imaging of other parts of digestive tract
CPT/HCPCS: 74177; Q9967

== ENCOUNTER → 2024-12-11 | Outpatient (CLI) | payer MEDICAID ==
[~2024-12-11] MED LIST changes: +GADOTERATE MEGLUMINE 10 MMOL/20 ML VIAL IV ONE; -IOHEXOL-350 75 ML VIAL IV ONE
--- NOTE | 2024-12-11 15:48 | HMCIMG ---
EXAM: MR Abdomen with and without Intravenous Contrast. CLINICAL HISTORY: R93.5 Abnormal findings on diagnostic imaging of other abdominal regions, i TECHNIQUE: Multisequence, multiplanar magnetic resonance images of the abdomen with and without intravenous contrast. Series acquired: 4 - COR SSFSE ARC - TR: 676.8 - TE: 89.3 - ET: 1.0 - Thk: 6.0 6 - COR LAVA ARC - TR: 4.3 - TE: 2.0 - ET: 1.0 - Thk: 4.4 8 - AX SSFSE BH ARC - TR: 571.1 - TE: 89.3 - ET: 1.0 - Thk: 6.0 9 - AX 3D DUALECHO BH - TR: 6.5 - TE: 4.2 - ET: 1.0 - Thk: 4.4 10 - AX T2 FRFSE FATSAT DARLENE ARC - TR: 42437.6 - TE: 103.6 - ET: 17.0 - Thk: 6.0 11 - AX DWI B=500 BH - TR: 3400.0 - TE: 59.3 - ET: 1.0 - Thk: 6.0 24 - G+ COR LAVA ARC - TR: 4.3 - TE: 2.0 - ET: 1.0 - Thk: 4.4 2300 - AX LAVA ARC DYNAMIC - TR: 4.4 - TE: 1.9 - ET: 1.0 - Thk: 4.4 2301 - PH1/AX LAVA ARC DYNAMIC - TR: 4.4 - TE: 1.9 - ET: 1.0 - Thk: 4.4 2302 - PH2/AX LAVA ARC DYNAMIC - TR: 4.4 - TE: 1.9 - ET: 1.0 - Thk: 4.4 2303 - PH3/AX LAVA ARC DYNAMIC - TR: 4.4 - TE: 1.9 - ET: 1.0 - Thk: 4.4 2304 - FT: PH1/AX LAVA ARC DYNAMIC - TR: 4.4 - TE: 1.9 - ET: 1.0 - Thk: 20.0 CONTRAST: COMPARISON: None provided. FINDINGS: LOWER THORAX: No pleural effusion. LIVER: The liver is enlarged, and the right lobe of the liver measures 16.2 cm. GALLBLADDER AND BILE DUCTS: Post cholecystectomy status. The common bile duct measures 11.0 mm. No intrahepatic biliary radicle dilatation. PANCREAS: Unremarkable. The main pancreatic duct appears prominent, measuring 3.2 mm. No annular pancreas. No pancreatic divisum. SPLEEN: The spleen measures 13.0 cm. ADRENALS: Unremarkable. KIDNEYS: The kidneys appear within normal limits. No hydronephrosis or mass evident. STOMACH AND BOWEL: Post-gastric reduction surgery status with gastrojejunostomy. Surgical anastomosis in the distal jejunal loops. Distal jejunal loops or proximal loops are not dilated. LYMPH NODES: No lymphadenopathy is evident. VASCULATURE: No abdominal aortic aneurysm. IMPRESSION: 1. Hepatomegaly with the right lobe measuring 16.2 cm. Mild splenomegaly. 2. Common bile duct dilation to 11.0 mm, status post cholecystectomy. 3. Status post gastric reduction surgery with gastrojejunostomy. /[place]
--- NOTE | 2024-12-11 20:49 | HMCIMG ---
EXAM: MR Pelvis With and Without Intravenous Contrast. CLINICAL HISTORY: 39-year-old female with abnormal findings on diagnostic imaging of other abdominal regions. TECHNIQUE: Multiplanar magnetic resonance images of the pelvis with and without intravenous contrast. CONTRAST: NONE COMPARISON: Compared to the prior CT abdomen and pelvis with contrast from 11/21/2022 at 8:35 AM. FINDINGS: BOWEL: Mild free fluid in the pelvis is seen. BLADDER: Unremarkable. No stone. REPRODUCTIVE: The uterus and adnexa are unremarkable. LYMPH NODES: No lymphadenopathy. BONES: No acute fracture or focal osseous lesion. No focal abnormality. IMPRESSION: 1. No acute abnormality related to the clinical history of abnormal findings on diagnostic imaging of other abdominal regions. 2. Mild free fluid in the pelvis. 3. Findings are similar to the prior CT abdomen and pelvis with contrast from 11/21/2022 at 8:35 AM. /[place]
== END | disposition home or self-care (01) ==
LOC: RAH 11:00
PROVIDERS: ATTEND Internal Medicine Gastroenterology
DX: K83.8 Other specified diseases of biliary tract (principal); R16.0 Hepatomegaly, not elsewhere classified; R18.8 Other ascites; R93.5 Abnormal findings on diagnostic imaging of other abdominal regions, including retroperitoneum; R93.3 Abnormal findings on diagnostic imaging of other parts of digestive tract; Z90.49 Acquired absence of other specified parts of digestive tract
CPT/HCPCS: 74183; 72197; A9575